=== PATIENT | male | born 1965 | race Caucasian/White ===

== ENCOUNTER → 2017-01-28 | Outpatient (CLI) | payer OTHER ==
[2012-12-22 11:21] VITALS: BP 107/58
--- NOTE | 2017-01-31 07:27 | CT ---
HISTORY: Low back pain Study: CT lumbar spine without contrast Comparison: Plain films 11/03/2012 Technique: Axial noncontrast images with coronal and sagittal reformats. Dose reduction procedures we re used with mA/kv adjusted for body size. Findings: The alignment is normal. The vertebral bodies are of average height. No compression fractures are miri ntified. The pedicles, spinous processes, and posterior elements are intact. There is some degenerati ve change in the right SI joint. Left SI joint is normal. The sacrum appears intact. The disc levels are evaluated as follows: L1-2 level: No evidence for compressive disc disease. The neural foramina are patent. The joints are normal. L2-3 level: No evidence for compressive disc disease. The neural foramina are patent. The joints are normal. L3-4 level: Mild concentric disc bulging effaces the thecal sac and contributes along with mild facet arthropathy to mild lateral recess narrowing bilaterally. L4-5 level: There is disc degeneration with vacuum phenomenon present. There is broad-based disc prot rusion which contributes along with bilateral facet arthropathy and spondylitic change to lateral rec ess and foraminal narrowing bilaterally. There is some extrusion of disc material caudally approximat santa 8 mm. L5-S1 level: Mild concentric disc bulging contributes along with spondylitic change and facet arthrop athy to lateral recess narrowing bilaterally. IMPRESSION: As above Reported By:
== END | disposition home or self-care (01) ==
LOC: RAD 08:06
PROVIDERS: ATTEND Neurological Surgery
DX: M54.5 Low back pain (principal); M12.88 Other specific arthropathies, not elsewhere classified, other specified site; M51.26 Other intervertebral disc displacement, lumbar region
CPT/HCPCS: 72131